=== PATIENT | female | born 1960 | race Caucasian/White ===

== ENCOUNTER 2016-04-25 13:22 | Emergency (ER) | payer MEDICAID ==
[~2016-04-25] VITALS: Ht 157.5 cm; Wt 82.1 kg
[~2016-04-25 13:22] MED LIST: BENADRYL50 M1 PO; FLORASTOR250 MG PO; GABAPENTIN100 M1; LAMICTAL200 MG PO; LATUDA40 MG PO; MACROBID100 M1 PO; NEURONTIN100 MG PO; NEXIUM40 MG PO; NORCO 10/325 MG1 TAB PO; QUETIAPINE FUMA25 M1 PO; XANAX XR1 MG PO; benadryl; nexium; norco; xanax
[2016-04-25 15:02] VITALS: BP 123/73
--- NOTE | 2016-04-25 15:09 | NUR ---
Pt placed in overflow chair 1.
--- NOTE | 2016-04-25 15:12 | NUR ---
55/F presents to ED for evaluation of right foot pain x1 month. Pt states "I was walking and my shoe got stuck to something on the floor and I tripped." Patient has mild swelling to right foot and redness. + pedal pulses. Pt ambulates iwith steady gait. VSS.
[2016-04-25] MEDS ORDERED: ACETAMINOPHEN 325 MG TAB PO ONE (15:20)
--- NOTE | 2016-04-25 15:25 | NUR ---
Pt taken to x-ray via w/c.
--- NOTE | 2016-04-25 15:38 | NUR ---
Pt returned from x-ray via w/c and placed in overflow.
--- NOTE | 2016-04-25 16:38 | NUR ---
PA finch evaluating patient in overflow.
--- NOTE | 2016-04-25 16:54 | NUR ---
Patient discharged with v/s stable. Written and verbal after care instructions given and explained. Patient alert, oriented and verbalized understanding of instructions. Ambulatory with steady gait. All questions addressed prior to discharge. ID band removed. Patient advised to follow up with PMD. Rx of ULTRAM given. Patient educated on indication of medication including possible reaction and side effects. Opportunity to ask questions provided and answered.
[2016-04-25 16:55] VITALS: BP 128/78
== END 2016-04-25 16:54 | disposition home or self-care (01) ==
LOC: MED 13:22
DX: M79.671 Pain in right foot (principal); I10 Essential (primary) hypertension; J45.909 Unspecified asthma, uncomplicated; F41.9 Anxiety disorder, unspecified; Z88.8 Allergy status to other drugs, medicaments and biological substances

== ENCOUNTER 2016-06-28 15:21 | Inpatient (IN) | payer MEDICAID ==
[~2016-06-28] VITALS: Ht 157.5 cm; Wt 111.1 kg
[~2016-06-28 15:21] MED LIST changes: +ALPR1TER PO; -BENADRYL50 M1 PO; -FLORASTOR250 MG PO; -GABAPENTIN100 M1; +LAM200 PO; -LAMICTAL200 MG PO; -LATUDA40 MG PO; +LURA40TA PO; -MACROBID100 M1 PO; -NEURONTIN100 MG PO; -NEXIUM40 MG PO; +NITR100C7 PO; -NORCO 10/325 MG1 TAB PO; +QUET25TA46 PO; -QUETIAPINE FUMA25 M1 PO; +SACC250C4 PO; -XANAX XR1 MG PO; -benadryl; -nexium; -norco; -xanax
[2016-06-28 16:03] VITALS: BP 128/75
[2016-06-28] MEDS ORDERED: LORazepam 2 MG/ML VIAL IVP ONE (17:20)
[2016-06-28 17:27] LABS: HEMATOCRIT 36.9 % (36-48); MEAN CORPUSCULAR HEMOGLOBIN 32 pg (27-31); MEAN CORPUSCULAR HGB CONC 32 g/dL (33-37); MEAN CORPUSCULAR VOLUME 99 fL (80-94); PLATELET COUNT (AUTO) 389 K/uL (140-450); RED BLOOD CELL COUNT(AUTO) 3.72 MIL/uL (4.20-5.40); RED CELL DISTRIBUTION WIDTH 12.5 % (11.6-13.7); WHITE BLOOD COUNT (AUTO) 8.9 K/uL (4.8-10.8)
[2016-06-28 17:29] LABS: APPEARANCE,URINE CLEAR (CLEAR); BILIRUBIN,URINE NEGATIVE (NEGATIVE); BLOOD, URINE NEGATIVE (NEGATIVE); COLOR,URINE YELLOW (YELLOW); LEUKOCYTE ESTERASE ,URINE NEGATIVE (NEGATIVE); NITRITE, URINE NEGATIVE (NEGATIVE); PH,URINE 6.5 (5.0-9.0); PROTEIN,URINE NEGATIVE (NEGATIVE); UGLUCOSE NEGATIVE (NEGATIVE)
[2016-06-28 17:36] LABS: ANION GAP 13.7 (8-16); CALCIUM 9.1 mg/dL (8.5-10.1); CARBON DIOXIDE 26.7 mmol/L (21-32); CREATININE 0.8 mg/dL (0.6-1.3); POTASSIUM 3.4 mmol/L (3.5-5.1)
[2016-06-28 17:38] LABS: BACTERIA,URINE 0-2 (RARE) /HPF (None Seen); RBC,URINE NONE SEEN /HPF (0-5); SQUAMOUS EPITHELIAL CELL,UR 0-3 (FEW) /LPF (0-3 (FEW))
[2016-06-28 17:42] LABS: ALBUMIN 3.9 g/dL (3.4-5.0); TOTAL BILIRUBIN 1.6 mg/dL (0.0-1.0); TOTAL PROTEIN, SERUM 7.6 g/dL (6.4-8.2)
[2016-06-28 17:54] LABS: EOSINOPHILS % (MANUAL) 2 % (0-4); LYMPHOCYTES % (MANUAL) 49 % (20-46); MONOCYTES % (MANUAL) 10 % (5-12); NEUTROPHILS % (MANUAL) 39 (43-65); PLATELET ESTIMATE ADEQUATE
[2016-06-28 18:03] LABS: AMPHETAMINE, URINE POS. ng/ml (NEG <=1000); BARBITURATE, URINE NEG. ng/ml (NEG <=200); BENZODIAZEPINE, URINE POS. ng/mL (NEG <=200); CANNABINOID, URINE POS. ng/mL (NEG <=50); COCAINE, URINE NEG. ng/mL (NEG <=300); OPIATE, URINE NEG. ng/mL (NEG <=2000); PHENCYCLIDINE SCREEN,URINE NEG. ng/mL (NEG <=25)
[2016-06-28] MEDS ORDERED: ONDANSETRON 4 MG/2 ML VIAL IVP PRN (19:40)
[2016-06-28] MEDS ORDERED: DOCUSATE SODIUM 100 MG GELCAP PO PRN (19:40)
[2016-06-28 19:45] VITALS: BP 111/57
[2016-06-28 20:12] LABS: PARTIAL THROMBOPLASTIN TIME 28.3 secs (22-35.6); PROTHROMBIN TIME 9.9 secs (10.8-13.4)
[2016-06-28 20:28] LABS: BILIRUBIN,DIRECT 0.2 mg/dL (0.0-0.3); CHOL/HDL RATIO 2.1 (1-4.5); FREE T4 (FREE THYROXINE) 1.32 ng/dL (0.76-1.46); THYROID STIMULATING HORMONE 0.47 uIU/mL (0.34-3.76)
[2016-06-28] MEDS: MORPHINE SULFATE 2 MG/ML SYR IVP PRN (20:36)
[2016-06-28] MEDS: NACL 0.9% 500 ML IV SCH (20:38)
[2016-06-29] VITALS: BP 99/55
[2016-06-29 04:00] VITALS: BP 118/67
[2016-06-29 06:42] LABS: HEMATOCRIT 34.4 % (36-48); HEMOGLOBIN 11.1 g/dL (12.0-16.0); MEAN CORPUSCULAR HEMOGLOBIN 32 pg (27-31); MEAN CORPUSCULAR HGB CONC 32 g/dL (33-37); MEAN CORPUSCULAR VOLUME 100 fL (80-94); PLATELET COUNT (AUTO) 321 K/uL (140-450); RED BLOOD CELL COUNT(AUTO) 3.44 MIL/uL (4.20-5.40); WHITE BLOOD COUNT (AUTO) 5.1 K/uL (4.8-10.8)
[2016-06-29 06:59] LABS: ANION GAP 11.3 (8-16); CALCIUM 8.5 mg/dL (8.5-10.1); CARBON DIOXIDE 26.3 mmol/L (21-32); CREATININE 0.7 mg/dL (0.6-1.3); POTASSIUM 3.6 mmol/L (3.5-5.1)
[2016-06-29 07:02] LABS: MAGNESIUM 1.9 mg/dL (1.8-2.4); PHOSPHORUS 4.1 mg/dL (2.5-4.9)
[2016-06-29 07:14] LABS: MONOCYTES % (MANUAL) 10 % (5-12); NEUTROPHILS % (MANUAL) 33 (43-65)
[2016-06-29 07:15] LABS: LYMPHOCYTES % (MANUAL) 57 % (20-46)
[2016-06-29 08:00] VITALS: BP 101/70
[2016-06-29] MEDS ORDERED: PANTOPRAZOLE 40 MG INJ VIAL IVP SCH (09:00)
[2016-06-29] MEDS: MORPHINE SULFATE 2 MG/ML SYR IVP PRN (09:05)
[2016-06-29] MEDS: FAMOTIDINE 20 MG TAB PO SCH (09:06)
[2016-06-29] MEDS: QUEtiapine FUMARATE 25 MG TAB PO SCH ×2 (09:30→14:40)
[2016-06-29] MEDS ORDERED: QUEtiapine FUMARATE 25 MG TAB PO SCH (09:35)
[2016-06-29] MEDS ORDERED: ALPRAZolam 0.5 MG TAB PO SCH (11:25)
[2016-06-29] MEDS: ALPRAZolam 0.5 MG TAB PO SCH ×2 (11:43→21:01)
[2016-06-29 12:00] VITALS: BP 137/93
[2016-06-29] MEDS: HYDROcodone/APAP 5/325 MG 1 TAB TAB PO PRN (14:40)
[2016-06-29 16:00] VITALS: BP 103/63
[2016-06-29] MEDS: NACL 0.9% 500 ML IV SCH (19:27)
[2016-06-29 20:00] VITALS: BP 110/66
[2016-06-29] MEDS ORDERED: ALPRAZOLAM 1 MG PO SCH (21:00)
[2016-06-30] VITALS: BP 116/62
[2016-06-30] MEDS: HYDROcodone/APAP 5/325 MG 1 TAB TAB PO PRN ×3 (01:19→18:21)
[2016-06-30 04:00] VITALS: BP 111/75
[2016-06-30] MEDS: NACL 0.9% 500 ML IV SCH (05:14)
[2016-06-30] MEDS: ACETAMINOPHEN 325 MG TAB PO PRN (05:14)
[2016-06-30 08:00] VITALS: BP 135/73
[2016-06-30] MEDS: FAMOTIDINE 20 MG TAB PO SCH (08:28)
[2016-06-30] MEDS: ALPRAZolam 0.5 MG TAB PO SCH ×2 (08:28→20:37)
[2016-06-30] MEDS: QUEtiapine FUMARATE 25 MG TAB PO SCH ×2 (08:28→20:37)
[2016-06-30] MEDS: NACL 0.9% 1,000 ML IV SCH (11:45)
[2016-06-30 16:00] VITALS: BP 112/65
[2016-06-30 20:29] VITALS: BP 146/74
[2016-06-30] MEDS: MORPHINE SULFATE 2 MG/ML SYR IVP PRN (20:36)
[2016-07-01 00:45] VITALS: BP 117/83
[2016-07-01] MEDS: HYDROcodone/APAP 5/325 MG 1 TAB TAB PO PRN ×2 (01:56→11:49)
[2016-07-01] MEDS: NACL 0.9% 1,000 ML IV SCH ×2 (04:53→07:51)
[2016-07-01 05:36] LABS: ANION GAP 8.3 (8-16); CARBON DIOXIDE 29.6 mmol/L (21-32); CREATININE 0.6 mg/dL (0.6-1.3); POTASSIUM 3.9 mmol/L (3.5-5.1)
[2016-07-01 06:15] LABS: HEMATOCRIT 35.3 % (36-48); HEMOGLOBIN 11.4 g/dL (12.0-16.0); MEAN CORPUSCULAR HEMOGLOBIN 32 pg (27-31); MEAN CORPUSCULAR HGB CONC 32 g/dL (33-37); MEAN CORPUSCULAR VOLUME 100 fL (80-94); PLATELET COUNT (AUTO) 351 K/uL (140-450); RED BLOOD CELL COUNT(AUTO) 3.52 MIL/uL (4.20-5.40); RED CELL DISTRIBUTION WIDTH 12.9 % (11.6-13.7); WHITE BLOOD COUNT (AUTO) 5.6 K/uL (4.8-10.8)
[2016-07-01 07:26] LABS: BAND % (MANUAL) 46 % (0-8); LYMPHOCYTES % (MANUAL) 7 % (20-46); NEUTROPHILS % (MANUAL) 47 (43-65)
[2016-07-01 07:27] LABS: ANISOCYTOSIS 1+; POIKILOCYTOSIS 21
[2016-07-01 08:00] VITALS: BP 116/69
[2016-07-01] MEDS: ALPRAZolam 0.5 MG TAB PO SCH ×2 (08:05→20:39)
[2016-07-01] MEDS: QUEtiapine FUMARATE 25 MG TAB PO SCH ×2 (08:05→20:39)
[2016-07-01] MEDS: FAMOTIDINE 20 MG TAB PO SCH (08:05)
[2016-07-01] MEDS: MORPHINE SULFATE 2 MG/ML SYR IVP PRN ×2 (13:58→21:10)
[2016-07-01 16:00] VITALS: BP 126/71
[2016-07-01 21:06] VITALS: BP 125/65
[2016-07-02] MEDS: NACL 0.9% 1,000 ML IV SCH ×3 (00:44→18:48)
[2016-07-02 00:50] VITALS: BP 110/57
[2016-07-02] MEDS: HYDROcodone/APAP 5/325 MG 1 TAB TAB PO PRN ×2 (00:54→18:19)
[2016-07-02 06:05] LABS: BASOPHILS # (AUTO) 0.3 K/uL (0.00-0.22); BASOPHILS % (AUTO) 4.9 % (0.0-2.0); EOSINOPHILS # (AUTO) 0.1 K/uL (0-0.4); EOSINOPHILS % (AUTO) 1.3 % (0.0-4.0); HEMATOCRIT 33.6 % (36-48); HEMOGLOBIN 11.3 g/dL (12.0-16.0); LYMPHOCYTES # (AUTO) 2.9 K/uL (2.5-16.5); LYMPHOCYTES % (AUTO) 46.2 % (20.5-51.1); MEAN CORPUSCULAR HEMOGLOBIN 33 pg (27-31); MEAN CORPUSCULAR HGB CONC 34 g/dL (33-37); MEAN CORPUSCULAR VOLUME 99 fL (80-94); MONOCYTES # (AUTO) 0.7 K/uL (0.8-1.0); MONOCYTES % (AUTO) 10.6 % (1.7-9.3); NEUTROPHILS # (AUTO) 2.3 K/uL (1.8-7.7); PLATELET COUNT (AUTO) 326 K/uL (140-450); RED CELL DISTRIBUTION WIDTH 12.4 % (11.6-13.7); WHITE BLOOD COUNT (AUTO) 6.3 K/uL (4.8-10.8)
[2016-07-02] MEDS: MORPHINE SULFATE 2 MG/ML SYR IVP PRN ×4 (06:15→20:58)
[2016-07-02 07:18] LABS: ANION GAP 11.3 (8-16); CALCIUM 8.9 mg/dL (8.5-10.1); CARBON DIOXIDE 27.5 mmol/L (21-32); POTASSIUM 3.8 mmol/L (3.5-5.1)
[2016-07-02 07:19] LABS: CREATININE 0.6 mg/dL (0.6-1.3)
[2016-07-02 08:00] VITALS: BP 128/74
[2016-07-02] MEDS: ALPRAZolam 0.5 MG TAB PO SCH ×2 (09:15→20:29)
[2016-07-02] MEDS: QUEtiapine FUMARATE 25 MG TAB PO SCH ×2 (09:15→20:29)
[2016-07-02] MEDS: FAMOTIDINE 20 MG TAB PO SCH (09:16)
[2016-07-02] MEDS: ACETAMINOPHEN 325 MG TAB PO PRN (09:16)
[2016-07-02 16:00] VITALS: BP 135/75
[2016-07-02 20:45] VITALS: BP 133/70
[2016-07-03] MEDS: HYDROcodone/APAP 5/325 MG 1 TAB TAB PO PRN ×3 (01:14→20:52)
[2016-07-03 05:05] VITALS: BP 124/77
[2016-07-03] MEDS: MORPHINE SULFATE 2 MG/ML SYR IVP PRN ×3 (05:05→18:55)
[2016-07-03] MEDS: ACETAMINOPHEN 325 MG TAB PO PRN (06:22)
[2016-07-03 06:31] LABS: HEMATOCRIT 34.5 % (36-48); HEMOGLOBIN 11.4 g/dL (12.0-16.0); MEAN CORPUSCULAR HEMOGLOBIN 33 pg (27-31); MEAN CORPUSCULAR HGB CONC 33 g/dL (33-37); MEAN CORPUSCULAR VOLUME 98 fL (80-94); PLATELET COUNT (AUTO) 344 K/uL (140-450); RED BLOOD CELL COUNT(AUTO) 3.51 MIL/uL (4.20-5.40); RED CELL DISTRIBUTION WIDTH 12.6 % (11.6-13.7); WHITE BLOOD COUNT (AUTO) 4.9 K/uL (4.8-10.8)
[2016-07-03 07:11] LABS: ANION GAP 10.5 (8-16); CARBON DIOXIDE 30.5 mmol/L (21-32); CREATININE 0.7 mg/dL (0.6-1.3)
[2016-07-03 08:00] VITALS: BP 99/57
[2016-07-03 08:08] LABS: EOSINOPHILS % (MANUAL) 2 % (0-4); LYMPHOCYTES % (MANUAL) 51 % (20-46); MONOCYTES % (MANUAL) 5 % (5-12); NEUTROPHILS % (MANUAL) 42 (43-65)
[2016-07-03] MEDS: QUEtiapine FUMARATE 25 MG TAB PO SCH ×2 (09:02→20:51)
[2016-07-03] MEDS: FAMOTIDINE 20 MG TAB PO SCH (09:02)
[2016-07-03] MEDS: ALPRAZolam 0.5 MG TAB PO SCH ×2 (09:02→20:52)
[2016-07-03 16:00] VITALS: BP 129/95
[2016-07-03] MEDS: NACL 0.9% 1,000 ML IV SCH (19:35)
[2016-07-04 00:01] VITALS: BP 108/62
[2016-07-04] MEDS: MORPHINE SULFATE 2 MG/ML SYR IVP PRN ×4 (01:11→19:31)
[2016-07-04] MEDS: ACETAMINOPHEN 325 MG TAB PO PRN ×2 (02:50→20:46)
[2016-07-04 05:28] VITALS: BP 121/63
[2016-07-04 06:06] LABS: HEMATOCRIT 35.5 % (36-48); HEMOGLOBIN 11.9 g/dL (12.0-16.0); MEAN CORPUSCULAR HEMOGLOBIN 33 pg (27-31); MEAN CORPUSCULAR HGB CONC 34 g/dL (33-37); MEAN CORPUSCULAR VOLUME 99 fL (80-94); PLATELET COUNT (AUTO) 328 K/uL (140-450); RED BLOOD CELL COUNT(AUTO) 3.59 MIL/uL (4.20-5.40); RED CELL DISTRIBUTION WIDTH 12.6 % (11.6-13.7); WHITE BLOOD COUNT (AUTO) 11.5 K/uL (4.8-10.8)
[2016-07-04 06:11] LABS: ANION GAP 11.4 (8-16); CALCIUM 9.5 mg/dL (8.5-10.1); CARBON DIOXIDE 26.6 mmol/L (21-32); CREATININE 0.7 mg/dL (0.6-1.3)
[2016-07-04 06:27] LABS: MAGNESIUM 1.7 mg/dL (1.8-2.4); PHOSPHORUS 3.3 mg/dL (2.5-4.9)
[2016-07-04 06:41] LABS: BAND % (MANUAL) 7 % (0-8); LYMPHOCYTES % (MANUAL) 8 % (20-46); NEUTROPHILS % (MANUAL) 81 (43-65)
[2016-07-04 06:42] LABS: MONOCYTES % (MANUAL) 4 % (5-12)
[2016-07-04 08:00] VITALS: BP 116/59
[2016-07-04] MEDS: ALPRAZolam 0.5 MG TAB PO SCH ×2 (08:31→20:46)
[2016-07-04] MEDS: HYDROcodone/APAP 5/325 MG 1 TAB TAB PO PRN (08:31)
[2016-07-04] MEDS: FAMOTIDINE 20 MG TAB PO SCH (08:32)
[2016-07-04] MEDS: QUEtiapine FUMARATE 25 MG TAB PO SCH ×2 (08:32→20:46)
[2016-07-04] MEDS: NACL 0.9% 1,000 ML IV SCH (14:39)
[2016-07-04 16:00] VITALS: BP 125/68
[2016-07-05] VITALS: BP 105/57
[2016-07-05] MEDS: HYDROcodone/APAP 5/325 MG 1 TAB TAB PO PRN ×3 (01:26→23:47)
[2016-07-05 08:00] VITALS: BP 110/67
[2016-07-05] MEDS: ALPRAZolam 0.5 MG TAB PO SCH ×2 (08:34→20:54)
[2016-07-05] MEDS: QUEtiapine FUMARATE 25 MG TAB PO SCH ×2 (08:34→20:53)
[2016-07-05] MEDS: FAMOTIDINE 20 MG TAB PO SCH (08:34)
[2016-07-05] MEDS ORDERED: MAGNESIUM OXIDE 400 MG TAB PO SCH (09:20)
[2016-07-05] MEDS: ACETAMINOPHEN 325 MG TAB PO PRN (09:30)
[2016-07-05] MEDS ORDERED: LORATADINE 10 MG TAB PO SCH (11:27)
[2016-07-05] MEDS: NACL 0.9% 1,000 ML IV SCH (11:52)
[2016-07-05 13:10] LABS: BASOPHILS # (AUTO) 0.1 K/uL (0.00-0.22); BASOPHILS % (AUTO) 0.9 % (0.0-2.0); EOSINOPHILS # (AUTO) 0.1 K/uL (0-0.4); EOSINOPHILS % (AUTO) 0.8 % (0.0-4.0); HEMATOCRIT 35.4 % (36-48); HEMOGLOBIN 11.7 g/dL (12.0-16.0); LYMPHOCYTES # (AUTO) 2.5 K/uL (2.5-16.5); LYMPHOCYTES % (AUTO) 28.3 % (20.5-51.1); MEAN CORPUSCULAR HEMOGLOBIN 33 pg (27-31); MEAN CORPUSCULAR HGB CONC 33 g/dL (33-37); MEAN CORPUSCULAR VOLUME 100 fL (80-94); MONOCYTES # (AUTO) 0.7 K/uL (0.8-1.0); MONOCYTES % (AUTO) 8.5 % (1.7-9.3); NEUTROPHILS # (AUTO) 5.4 K/uL (1.8-7.7); NEUTROPHILS % (AUTO) 61.5 % (42.2-75.2); PLATELET COUNT (AUTO) 327 K/uL (140-450); RED BLOOD CELL COUNT(AUTO) 3.56 MIL/uL (4.20-5.40); WHITE BLOOD COUNT (AUTO) 8.8 K/uL (4.8-10.8)
[2016-07-05] MEDS: MORPHINE SULFATE 2 MG/ML SYR IVP PRN ×2 (14:12→20:00)
[2016-07-05 14:15] VITALS: BP 106/62
[2016-07-05 16:00] VITALS: BP 104/66
[2016-07-05 20:00] VITALS: BP 129/90
[2016-07-05] MEDS: MAGNESIUM OXIDE 400 MG TAB PO SCH (20:52)
[2016-07-06] VITALS: BP 113/73
[2016-07-06] MEDS: MORPHINE SULFATE 2 MG/ML SYR IVP PRN (04:25)
[2016-07-06] MEDS: NACL 0.9% 1,000 ML IV SCH (06:50)
[2016-07-06 08:00] VITALS: BP 114/72
[2016-07-06] MEDS ORDERED: HYDROcodone/APAP 5/325 MG 1 TAB TAB PO PRN (08:15)
[2016-07-06] MEDS: MAGNESIUM OXIDE 400 MG TAB PO SCH (08:54)
[2016-07-06] MEDS: QUEtiapine FUMARATE 25 MG TAB PO SCH (08:54)
[2016-07-06] MEDS: FAMOTIDINE 20 MG TAB PO SCH (08:55)
[2016-07-06] MEDS: ALPRAZolam 0.5 MG TAB PO SCH (08:55)
[2016-07-06] MEDS ORDERED: LORATADINE 10 MG TAB PO SCH (09:00)
== END 2016-07-06 13:35 | disposition home or self-care (01) | DRG 52 ==
LOC: MED 15:21 → MTU 19:34
PROVIDERS: ADMIT Family Medicine; ATTEND Family Medicine
DX: G92 Toxic encephalopathy (principal); N17.0 Acute kidney failure with tubular necrosis; F25.0 Schizoaffective disorder, bipolar type; F15.10 Other stimulant abuse, uncomplicated; F10.21 Alcohol dependence, in remission; F12.10 Cannabis abuse, uncomplicated; R45.851 Suicidal ideations; J45.909 Unspecified asthma, uncomplicated; G40.909 Epilepsy, unspecified, not intractable, without status epilepticus; G47.00 Insomnia, unspecified; K21.9 Gastro-esophageal reflux disease without esophagitis; M19.90 Unspecified osteoarthritis, unspecified site; F17.210 Nicotine dependence, cigarettes, uncomplicated; F41.1 Generalized anxiety disorder; M79.7 Fibromyalgia; F13.10 Sedative, hypnotic or anxiolytic abuse, uncomplicated; Z96.651 Presence of right artificial knee joint; E87.6 Hypokalemia; Z88.6 Allergy status to analgesic agent; Z88.0 Allergy status to penicillin; Z88.8 Allergy status to other drugs, medicaments and biological substances; Z79.899 Other long term (current) drug therapy; Z98.51 Tubal ligation status; Z56.0 Unemployment, unspecified; Z71.51 Drug abuse counseling and surveillance of drug abuser
CPT/HCPCS: 36415; 80048; 80053; 80305; 81001; 82150; 82248; 83036; 83605; 83690; 83735; 83880; 84100; 84439; 84443; 85025; 85610; 85730; 87081; 87086; 93005; 96374; 96375; 99285; C9113; J1644; J2060; J2270; J7030

== ENCOUNTER 2016-07-26 01:07 | Emergency (ER) | payer MEDICAID ==
[~2016-07-26] VITALS: Ht 157.5 cm; Wt 88.5 kg
[~2016-07-26 01:07] MED LIST changes: -NITR100C7 PO
[2016-07-26 01:12] VITALS: BP 126/80
--- NOTE | 2016-07-26 01:12 | NUR ---
55 Y/O F W/C/O COUGH, FOR 3 DAYS, RUNNYNOSE, NECK AND BACK PAIN. NO S/S OF DISTRESS NOTED.
--- NOTE | 2016-07-26 01:19 | NUR ---
PT TAKEN TO BED 8
--- NOTE | 2016-07-26 01:27 | NUR ---
Dr. Stevenson evaluating patient at bedside.
[2016-07-26] MEDS ORDERED: KETOROLAC 60 MG/2 ML VIAL IM ONE (01:40)
[2016-07-26 02:03] VITALS: BP 135/88
--- NOTE | 2016-07-26 02:03 | NUR ---
Patient discharged with v/s stable. Written and verbal after care instructions given and explained. Patient alert, oriented and verbalized understanding of instructions. Ambulatory with steady gait. All questions addressed prior to discharge. ID band removed. Patient advised to follow up with PMD OR RETURN TO ER IF CONDITION WORSENS. Rx of PROMETHAZINE AND AZYTHROMYCIN given. Patient educated on indication of medication including possible reaction and side effects. Opportunity to ask questions provided and answered.
== END 2016-07-26 02:03 | disposition home or self-care (01) ==
LOC: MED 01:07
DX: J06.9 Acute upper respiratory infection, unspecified (principal); J45.909 Unspecified asthma, uncomplicated; F31.9 Bipolar disorder, unspecified; F25.9 Schizoaffective disorder, unspecified; Z88.0 Allergy status to penicillin; Z88.6 Allergy status to analgesic agent; Z88.8 Allergy status to other drugs, medicaments and biological substances
CPT/HCPCS: 96372; 99283; J1885

== ENCOUNTER 2016-09-22 02:30 | Emergency (ER) | payer MEDICAID ==
[~2016-09-22] VITALS: Ht 157.5 cm; Wt 86.2 kg
[2016-09-22 02:37] VITALS: BP 158/89
--- NOTE | 2016-09-22 02:45 | NUR ---
55 Y/O F W/C/O FEET SWELLING AND PAIN TO BILATERAL ANKLES X 3 DAYS. PT STATES HAS A MED HX OF FIBROMYALGIA, AND ANXIETY. NO S/S OF DISTRESS NOTED. ER MD MADE AWARE.
--- NOTE | 2016-09-22 02:46 | NUR ---
Kin diaz in [facility] - 09/22/16 at 0309 by ROMINA PT TAKEN TO BED 5
--- NOTE | 2016-09-22 02:54 | NUR ---
Dr. Baca evaluating patient at bedside.
[2016-09-22] MEDS ORDERED: MORPHINE SULFATE 2 MG/ML SYR IM ONE (02:55)
--- NOTE | 2016-09-22 03:35 | NUR ---
PT SLEEPING, VSS. NO S/S OF DISTRESS NOTED AT THE MOMENT.
--- NOTE | 2016-09-22 03:55 | NUR ---
Pupils equal and reactive to light bilaterally. No facial droop noted. No smile deficit noted. Speech normal for patient. Patient is alert and oriented to person, place, time and event. Bilateral hand brick kiln burner equal. Bilateral foot push equal.
[2016-09-22 03:59] VITALS: BP 132/72
--- NOTE | 2016-09-22 04:00 | NUR ---
Patient discharged with v/s stable. Written and verbal after care instructions given and explained. Patient alert, oriented and verbalized understanding of instructions. Wheel Chair Assisted with to home. All questions addressed prior to discharge. ID band removed. Patient advised to follow up with PMD. Rx of TRAMADOL 50MG Q6HRS/PRN given. Patient educated on indication of medication including possible reaction and side effects. Opportunity to ask questions provided and answered.
== END 2016-09-22 04:00 | disposition home or self-care (01) ==
LOC: MED 02:30
DX: M79.673 Pain in unspecified foot (principal); R03.0 Elevated blood-pressure reading, without diagnosis of hypertension; J45.909 Unspecified asthma, uncomplicated; F41.9 Anxiety disorder, unspecified; Z88.0 Allergy status to penicillin; Z88.1 Allergy status to other antibiotic agents; Z88.8 Allergy status to other drugs, medicaments and biological substances; Z88.6 Allergy status to analgesic agent; Z79.899 Other long term (current) drug therapy
CPT/HCPCS: 96372; 99283; J2270

== ENCOUNTER 2017-02-12 15:42 | Emergency (ER) | payer MEDICAID ==
[~2017-02-12] VITALS: Ht 157.5 cm; Wt 88.9 kg
[~2017-02-12 15:42] MED LIST changes: +FLOR250 PO; -SACC250C4 PO
[2017-02-12 16:32] VITALS: BP 137/68
--- NOTE | 2017-02-12 20:00 | NUR ---
56/F c/o flu like symptoms for the past few days, anxiety and body aches. Pt AOX4, ambulatory with steady gait. No distress noted.
[2017-02-12 20:16] VITALS: BP 158/111
--- NOTE | 2017-02-12 20:16 | NUR ---
Patient discharged with v/s stable. Written and verbal after care instructions given and explained. Patient alert, oriented and verbalized understanding of instructions. Ambulatory with steady gait. All questions addressed prior to discharge. ID band removed. Patient advised to follow up with PMD. Rx of Tamiflu and Tramadol 50mg given. Patient educated on indication of medication including possible reaction and side effects. Opportunity to ask questions provided and answered.
== END 2017-02-12 20:16 | disposition home or self-care (01) ==
LOC: MED 15:42
DX: J11.1 Influenza due to unidentified influenza virus with other respiratory manifestations (principal); M79.7 Fibromyalgia; M79.662 Pain in left lower leg; F41.9 Anxiety disorder, unspecified; Z90.89 Acquired absence of other organs; Z88.0 Allergy status to penicillin; Z88.6 Allergy status to analgesic agent; Z88.8 Allergy status to other drugs, medicaments and biological substances
CPT/HCPCS: 99283

== ENCOUNTER 2017-12-21 19:26 | Emergency (ER) | payer MEDICAID ==
[~2017-12-21] VITALS: Ht 154.9 cm; Wt 104.8 kg
[~2017-12-21 19:26] MED LIST changes: -ALPR1TER PO; -FLOR250 PO; -LAM200 PO; -LURA40TA PO
[2017-12-21 19:42] VITALS: BP 112/61
--- NOTE | 2017-12-21 19:42 | NUR ---
TO BED # 12 AMBULATORY, REPORT GIVEN TO MARIA ELENA DEL ROSARIO
--- NOTE | 2017-12-21 19:42 | NUR ---
PT PRESSENTS TO ED WITH GENERALIZED BODY ACHES. PT SATES HX OF ANXIETY AND HAS A PSYCHIATRIST BUT HAVING DIFFICUTLY FINDING MEDICATIONS THAT MAKE HER COMFORTABLE WITHOUT ANXIETY. GENERALIZED BODY ACHES X3 MONTHS, 09/18, CONSTANT. VSS. A&OX4. POSITIONED IN BED FOR COMFORT. SIDE RAILES UP. ER MD AWARE. CONTINUE TO MONITOR.
[2017-12-21] MEDS ORDERED: DIAZEPAM 5 MG TAB PO ONE (20:15)
[2017-12-21] MEDS ORDERED: KETOROLAC 30 MG/ML VIAL IM ONE (20:15)
[2017-12-21 20:49] LABS: BASOPHILS % (AUTO) 0.4 % (0.0-2.0); EOSINOPHILS # (AUTO) 0.1 K/uL (0-0.4); EOSINOPHILS % (AUTO) 1.2 % (0.0-4.0); HEMATOCRIT 37.2 % (36-48); HEMOGLOBIN 12.1 g/dL (12.0-16.0); LYMPHOCYTES # (AUTO) 3.3 K/uL (2.5-16.5); LYMPHOCYTES % (AUTO) 35.4 % (20.5-51.1); MEAN CORPUSCULAR HEMOGLOBIN 32 pg (27-31); MEAN CORPUSCULAR HGB CONC 33 g/dL (33-37); MONOCYTES % (AUTO) 10.7 % (1.7-9.3); NEUTROPHILS # (AUTO) 4.8 K/uL (1.8-7.7); NEUTROPHILS % (AUTO) 52.3 % (42.2-75.2); PLATELET COUNT (AUTO) 326 K/uL (140-450); RED BLOOD CELL COUNT(AUTO) 3.75 MIL/uL (4.20-5.40); RED CELL DISTRIBUTION WIDTH 13.2 % (11.6-13.7); WHITE BLOOD COUNT (AUTO) 9.2 K/uL (4.8-10.8)
[2017-12-21 21:00] LABS: ANION GAP 15.4 (8-16); CARBON DIOXIDE 26.5 mmol/L (21-32); CREATININE 1.1 mg/dL (0.6-1.3); POTASSIUM 3.9 mmol/L (3.5-5.1)
[2017-12-21 21:06] LABS: ALBUMIN 3.8 g/dL (3.4-5.0); TOTAL BILIRUBIN 0.9 mg/dL (0.0-1.0)
[2017-12-21 21:50] VITALS: BP 123/67
--- NOTE | 2017-12-21 21:50 | NUR ---
Patient discharged with v/s stable. Written and verbal after care instructions given and explained. Patient alert, oriented and verbalized understanding of instructions. Ambulatory with steady gait. All questions addressed prior to discharge. ID band removed. Patient advised to follow up with PMD. Rx of Valium and Acetaminophen given. Patient educated on indication of medication including possible reaction and side effects. Opportunity to ask questions provided and answered.
== END 2017-12-21 21:50 | disposition home or self-care (01) ==
LOC: MED 19:26
DX: M79.10 Myalgia, unspecified site (principal); J45.909 Unspecified asthma, uncomplicated; I10 Essential (primary) hypertension; F41.9 Anxiety disorder, unspecified; Z98.51 Tubal ligation status; Z90.89 Acquired absence of other organs; Z88.0 Allergy status to penicillin; Z88.6 Allergy status to analgesic agent; Z88.8 Allergy status to other drugs, medicaments and biological substances; Z79.899 Other long term (current) drug therapy
CPT/HCPCS: 36415; 80053; 82550; 85025; 96372; 99284; J1885

== ENCOUNTER 2018-04-25 19:38 | Emergency (ER) | payer MEDICAID, OTHER ==
[~2018-04-25] VITALS: Ht 152.4 cm; Wt 108.0 kg
[2018-04-25 20:00] VITALS: BP 132/70
--- NOTE | 2018-04-25 20:04 | NUR ---
TO LOBBY AMBULATORY, ANTONETTE HERNANDEZ NOTED
--- NOTE | 2018-04-25 20:53 | NUR ---
PT AMBULATED TO BED 11.
--- NOTE | 2018-04-25 21:00 | NUR ---
Note undone in EDM - 04/25/18 at 2156 by [email or web address] S/P PAPSMEAR LAST THURSDAY NOW WITH VAG PAIN, BOTH LEG AND HAND PAIN, NUMBNESS, AND PAINFUL WHEN SHE WALK. PT DENIES N/V/D; SKIN IS INTACT, PINK/WARM/DRY; AAOX4, PERRL, WITH EVEN AND STEADY GAIT; LUNGS CLEAR BL, BREATHING UNLABORED; HR EVEN AND REGULAR, BL PERIPHERAL PULSES PRESENT; BS ACTIVE X4, NO TENDERNESS TO PALPATION, NO HEPATOSPLENOMEGALLY PALPATED, RESONANT TO PERCUSSION; PT DENIES ANY FEVER, CP, SOB, OR COUGH AT THIS TIME; PT STATES 10/10 PAIN AT THIS TIME; VSS; PATIENT POSITIONED FOR COMFORT; HOB ELEVATED; BEDRAILS UP X2; BED DOWN. PMH: ANXIETY RX: "ANXIETY MEDS"
--- NOTE | 2018-04-25 21:00 | NUR ---
S/P PAPSMEAR LAST THURSDAY NOW WITH VAG PAIN, BOTH LEG AND HAND PAIN, NUMBNESS, AND PAINFUL WHEN SHE WALK. PT DENIES N/V/D; SKIN IS INTACT, PINK/WARM/DRY; AAOX4, PERRL, WITH EVEN AND STEADY GAIT; LUNGS CLEAR BL, BREATHING UNLABORED; HR EVEN AND REGULAR, BL PERIPHERAL PULSES PRESENT; BS ACTIVE X4, NO TENDERNESS TO PALPATION, NO HEPATOSPLENOMEGALLY PALPATED, RESONANT TO PERCUSSION; PT DENIES ANY FEVER, CP, SOB, OR COUGH AT THIS TIME; PT STATES 10/10 PAIN AT THIS TIME; VSS; PATIENT POSITIONED FOR COMFORT; HOB ELEVATED; BEDRAILS UP X2; BED DOWN. PMH: ANXIETY RX: PT STATES "ANXIETY MEDS", DOES NOT RECALL NAMES
--- NOTE | 2018-04-25 22:22 | NUR ---
PATIENT RESTING AT THIS TIME, NO SIGNS OF DISTRESS.
[2018-04-25] MEDS ORDERED: MORPHINE SULFATE 4 MG/ML SYR IM ONE (22:40)
[2018-04-25 23:30] VITALS: BP 128/75
--- NOTE | 2018-04-25 23:30 | NUR ---
Patient discharged with v/s stable. Written and verbal after care instructions given and explained. Patient alert, oriented and verbalized understanding of instructions. Ambulatory with steady gait. All questions addressed prior to discharge. ID band removed. Patient advised to follow up with PMD. Rx of TRAMADOL 50MG given. Patient educated on indication of medication including possible reaction and side effects. Opportunity to ask questions provided and answered.
== END 2018-04-25 23:30 | disposition home or self-care (01) ==
LOC: MED 19:38
DX: R25.2 Cramp and spasm (principal); R10.2 Pelvic and perineal pain; J45.909 Unspecified asthma, uncomplicated; Z88.0 Allergy status to penicillin; Z88.6 Allergy status to analgesic agent; Z79.899 Other long term (current) drug therapy
CPT/HCPCS: 81002; 81025; 96372; 99283; J2270

== ENCOUNTER 2018-05-01 15:49 | Emergency (ER) | payer OTHER ==
[~2018-05-01] VITALS: Ht 152.4 cm; Wt 150.1 kg
[2018-05-01 15:53] VITALS: BP 149/84
--- NOTE | 2018-05-01 15:57 | NUR ---
pt triaged and ambulated to er lobby
--- NOTE | 2018-05-01 16:54 | NUR ---
PT AMB TO BED 5
--- NOTE | 2018-05-01 17:03 | NUR ---
57 y f pt bib self c/o 11/18 throbbing vaginal pain since a pap smear on 04/20. says it radiates down to L leg. no discharge. denies odor. denies itching. denies n/v. seen here last thursday and discharged home. bed is down, locked, bed rail x 1, ermd notified. pmh- asthma rx-uses an inhaler but cant remember the name of the medication
[2018-05-01] MEDS ORDERED: HYDROcodone/APAP 5/325 MG 1 TAB TAB PO ONE (19:10)
--- NOTE | 2018-05-01 19:15 | NUR ---
Pt report given to filemon toney. Transfer of care at this time.
--- NOTE | 2018-05-01 19:39 | NUR ---
PATIENT TAKEN TO XRAY
--- NOTE | 2018-05-01 20:40 | NUR ---
Dr. Mckinney evaluating patient at bedside.
[2018-05-01 21:15] VITALS: BP 142/80
== END 2018-05-01 21:16 | disposition home or self-care (01) ==
LOC: MED 15:49
DX: S39.011A Strain of muscle, fascia and tendon of abdomen, initial encounter (principal); R10.2 Pelvic and perineal pain; J45.909 Unspecified asthma, uncomplicated; Z79.899 Other long term (current) drug therapy; Z88.0 Allergy status to penicillin; Z88.6 Allergy status to analgesic agent; Z88.5 Allergy status to narcotic agent; Z88.8 Allergy status to other drugs, medicaments and biological substances; X58.XXXA Exposure to other specified factors, initial encounter; Y93.89 Activity, other specified; Y92.89 Other specified places as the place of occurrence of the external cause; Y99.8 Other external cause status
CPT/HCPCS: 73502; 81002; 81025; 99283

== ENCOUNTER 2018-07-07 17:27 | Emergency (ER) | payer OTHER ==
[~2018-07-07] VITALS: Ht 152.4 cm; Wt 106.1 kg
--- NOTE | 2018-07-07 17:44 | NUR ---
PT TO ER BED 1
[2018-07-07 17:45] VITALS: BP 116/50
--- NOTE | 2018-07-07 17:55 | NUR ---
PATIENT PRESENTS TO ED WITH C/O WORSENING BLE SWELLING/PAIN. PT STATES SHE WAS DX WITH BREAST CANCER APPROX 5 WEEKS AGO. NOTED VERY ANXIOUS. PT STATES PAIN IS 10/10 AT THIS TIME. VSS. PT POSITIONED FOR COMFORT. BEDRAIL UP X1. BED DOWN. PENDING ER MD EVALUATION.
[2018-07-07] MEDS ORDERED: HYDROcodone/APAP 5/325 MG 1 TAB TAB PO ONE (18:10)
[2018-07-07] MEDS ORDERED: ALPRAZolam 0.5 MG TAB PO ONE (18:10)
[2018-07-07 18:38] LABS: BASOPHILS % (AUTO) 0.3 % (0.0-2.0); EOSINOPHILS # (AUTO) 0.1 K/uL (0-0.4); EOSINOPHILS % (AUTO) 0.8 % (0.0-4.0); HEMATOCRIT 33.5 % (36-48); HEMOGLOBIN 11.2 g/dL (12.0-16.0); LYMPHOCYTES # (AUTO) 2.1 K/uL (2.5-16.5); LYMPHOCYTES % (AUTO) 25.1 % (20.5-51.1); MEAN CORPUSCULAR HEMOGLOBIN 33 pg (27-31); MEAN CORPUSCULAR HGB CONC 33 g/dL (33-37); MEAN CORPUSCULAR VOLUME 98.7 fL (80-94); MONOCYTES # (AUTO) 0.8 K/uL (0.8-1.0); MONOCYTES % (AUTO) 9.2 % (1.7-9.3); NEUTROPHILS # (AUTO) 5.3 K/uL (1.8-7.7); NEUTROPHILS % (AUTO) 64.6 % (42.2-75.2); PLATELET COUNT (AUTO) 288 K/uL (140-450); RED BLOOD CELL COUNT(AUTO) 3.39 MIL/uL (4.20-5.40); RED CELL DISTRIBUTION WIDTH 13.8 % (11.6-13.7); WHITE BLOOD COUNT (AUTO) 8.3 K/uL (4.8-10.8)
[2018-07-07 18:49] LABS: ANION GAP 12.2 (8-16); CARBON DIOXIDE 23.4 mmol/L (21-32); CREATININE 0.8 mg/dL (0.6-1.3); POTASSIUM 3.6 mmol/L (3.5-5.1)
[2018-07-07 18:55] LABS: ALBUMIN 3.6 g/dL (3.4-5.0); TOTAL BILIRUBIN 0.7 mg/dL (0.0-1.0)
--- NOTE | 2018-07-07 19:09 | NUR ---
REPORT GIVEN TO MIGUEL ÁNGEL CASEY. TRANSFER OF CARE AT THIS TIME .
--- NOTE | 2018-07-07 19:15 | NUR ---
PT REPORTS FEELING CALMER, LESS ANXIOUS. XANAX EFFECTIVE.
[2018-07-07 19:38] VITALS: BP 130/71
--- NOTE | 2018-07-07 19:38 | NUR ---
Patient discharged with v/s stable. Written and verbal after care instructions given and explained. Patient verbalized understanding. Ambulatory with steady gait. All questions addressed prior to discharge. Advised to follow up with PMD. Addendum: 07/07/18 at 1957 by [facility] PT ADVISED TO FOLLOW UP WITH PMD FOR CHRONIC PAIN MANAGEMENT.
== END 2018-07-07 19:38 | disposition home or self-care (01) ==
LOC: MED 17:27
DX: F41.9 Anxiety disorder, unspecified (principal); M54.30 Sciatica, unspecified side; J45.909 Unspecified asthma, uncomplicated; Z85.3 Personal history of malignant neoplasm of breast; Z79.899 Other long term (current) drug therapy; Z88.0 Allergy status to penicillin; Z79.82 Long term (current) use of aspirin; Z79.1 Long term (current) use of non-steroidal anti-inflammatories (NSAID)
CPT/HCPCS: 36415; 80053; 81002; 81025; 85025; 99283

== ENCOUNTER 2018-08-15 12:51 | Emergency (ER) | payer OTHER ==
[~2018-08-15] VITALS: Ht 152.4 cm; Wt 106.3 kg
[2018-08-15 13:12] VITALS: BP 124/78
--- NOTE | 2018-08-15 13:28 | NUR ---
PT AMBULATED TO ER BED 1
--- NOTE | 2018-08-15 13:50 | NUR ---
PT BIB SELF PT C/O LOWER BACK PAIN GOES TO PELVIC SINCE LAST NIGHT. GETTING WORSE THIS MORNING.11/18. GOOD ROM ON LOWER EXTREMITY. +2 PEDAL PULSE. PT ABLE TO WALK. STATES OF HAVE PAIN WITH CHANGE OF POSITION. PUT THE SIDE RAILS UP, BED AT LOWER POSITION. ER MD TO SEE THE PT. HX: ASTHMA, BREAST CANCER. FIBROMYALGIA, COPD, PTSD TX: DARIEN
[2018-08-15] MEDS ORDERED: KETOROLAC 60 MG/2 ML VIAL IM ONE (14:40)
[2018-08-15] MEDS ORDERED: HYDROcodone/APAP 10/325 MG 1 TAB TAB PO STA (14:40)
--- NOTE | 2018-08-15 15:18 | NUR ---
Patient discharged with v/s stable. Written and verbal after care instructions given and explained. Patient verbalized understanding. Ambulatory with steady gait. All questions addressed prior to discharge. Advised to follow up with PMD.
[2018-08-15 15:19] VITALS: BP 120/78
== END 2018-08-15 15:18 | disposition home or self-care (01) ==
LOC: MED 12:51
DX: S33.9XXA Sprain of unspecified parts of lumbar spine and pelvis, initial encounter (principal); J44.9 Chronic obstructive pulmonary disease, unspecified; Z98.890 Other specified postprocedural states; Z88.0 Allergy status to penicillin; Z88.6 Allergy status to analgesic agent; Z88.8 Allergy status to other drugs, medicaments and biological substances; Z79.899 Other long term (current) drug therapy; Z85.3 Personal history of malignant neoplasm of breast; X58.XXXA Exposure to other specified factors, initial encounter; Y93.89 Activity, other specified; Y92.89 Other specified places as the place of occurrence of the external cause; Y99.8 Other external cause status
CPT/HCPCS: 81025; 96372; 99283; J1885

== ENCOUNTER 2020-05-23 16:28 | Emergency (ER) | payer OTHER ==
[~2020-05-23] VITALS: Ht 172.7 cm; Wt 101.7 kg
[2020-05-23 16:43] VITALS: BP 103/59
--- NOTE | 2020-05-23 17:20 | NUR ---
PT AMBULATED TO BED 2.
--- NOTE | 2020-05-23 17:25 | NUR ---
Dr. Valentino at pt bedside for further evaluation.
[2020-05-23] MEDS ORDERED: HYDROcodone/APAP 5/325 MG 1 TAB TAB PO ONE (17:30)
--- NOTE | 2020-05-23 17:36 | NUR ---
59 Y/O FEMALE C/O LEFT KNEE, LEFT BUTTOCK & LEFT SHOULDER PAIN 09/18 DESCRIBES ACHING S/P FALL X 3 WEEKS. PT DENIES LOC, STATES SHE DID HIT HER HEAD ON SHOWER CURTAIN. DENIES FEVER/CHILLS, +N/V. PMH: RIGHT BREAST CANCER & RIGHT MASTECTOMY IN 2019 ALLERGIES: PCN, ARIPIPRAZOLE, ASA, MORTRIN, IBUPROFEN
--- NOTE | 2020-05-23 17:52 | NUR ---
Pt taken to XR via W/C.
--- NOTE | 2020-05-23 18:01 | NUR ---
Pt brought back to ER bed 2 via W/C.
[2020-05-23] MEDS ORDERED: DICL100G5 TP (18:17)
[2020-05-23] MEDS ORDERED: ACET-8386 PO ×2 (18:17→18:18)
[2020-05-23 18:43] VITALS: BP 103/59
--- NOTE | 2020-05-23 18:43 | NUR ---
Patient discharged with v/s stable. Written and verbal after care instructions given and explained. Patient alert, oriented and verbalized understanding of instructions. Ambulatory with steady gait. All questions addressed prior to discharge. ID band removed. Patient advised to follow up with PMD. Rx of hydrocodone 5mg-325mg po q6h prn pain, and diclofenac 100gm qid prn pain given. Patient educated on indication of medication including possible reaction and side effects. Opportunity to ask questions provided and answered.
== END 2020-05-23 18:43 | disposition home or self-care (01) ==
LOC: MED 16:28
DX: S80.02XA Contusion of left knee, initial encounter (principal); M25.512 Pain in left shoulder; M25.552 Pain in left hip; J44.9 Chronic obstructive pulmonary disease, unspecified; Z85.3 Personal history of malignant neoplasm of breast; Z79.899 Other long term (current) drug therapy; Z88.0 Allergy status to penicillin; Z88.6 Allergy status to analgesic agent; Z88.2 Allergy status to sulfonamides; Z88.8 Allergy status to other drugs, medicaments and biological substances; Z88.5 Allergy status to narcotic agent; W01.0XXA Fall on same level from slipping, tripping and stumbling without subsequent striking against object, initial encounter; Y93.89 Activity, other specified; Y92.89 Other specified places as the place of occurrence of the external cause; Y99.8 Other external cause status
CPT/HCPCS: 73030; 73501; 73562; 99284